=== PATIENT | female | born 2005 | race Hispanic/Latino ===

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

== ENCOUNTER 2024-08-18 14:11 | Emergency (ER) | payer BC ==
[~2024-08-18] VITALS: Ht 154.9 cm; Wt 43.5 kg
[~2024-08-18 14:11] MED LIST: CEPH500B PO
--- NOTE | 2024-08-18 14:32 | EKG ---
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
--- NOTE | 2024-08-18 14:42 | NUR ---
PT JUST NOW BEING PLACED IN MY ED BED 12 BY [facility].
[2024-08-18] MEDS: 0.9%NACL 1000ML 1,000 ML IV ONE (15:00)
--- NOTE | 2024-08-18 16:00 | NUR ---
NO CHANGES IN PT CONDITION. NO ACUTE DISTRESS NOTED. VSS.
[2024-08-18 16:07] LABS: BASOPHILS # (AUTO) 0.01 K/uL (0.00-0.20); BASOPHILS % (AUTO) 0.1 % (0.0-5.0); EOSINOPHILS # (AUTO) 0.01 K/uL (0.00-0.70); EOSINOPHILS % (AUTO) 0.1 % (0.0-8.0); HEMATOCRIT 36.3 % (36-48); IMMATURE GRANULOCYTE ABSOLUTE 0.03 K/uL (0-1); LYMPHOCYTES # (AUTO) 1.6 K/uL (1.0-4.8); MEAN CORPUSCULAR HEMOGLOBIN 31.1 pg (27.0-33.0); MEAN CORPUSCULAR HGB CONC 33.9 g/dL (32.0-36.0); MEAN CORPUSCULAR VOLUME 91.7 fL (80-100); MONOCYTES # (AUTO) 0.7 K/uL (0.1-1.0); NEUTROPHILS # (AUTO) 5.8 K/uL (1.8-7.7); NEUTROPHILS % (AUTO) 71.4 % (40.0-77.0); PLATELET COUNT (AUTO) 393 K/uL (130-400); RED BLOOD CELL COUNT(AUTO) 3.96 MIL/uL (4.00-5.50); RED CELL DISTRIBUTION WIDTH 12.2 % (11.0-15.5); WHITE BLOOD COUNT (AUTO) 8.2 K/uL (4.8-10.8)
[2024-08-18 16:20] LABS: CARBON DIOXIDE 29 mmol/L (21-32); CHLORIDE 108 mmol/L (101-111); CREATININE 0.7 mg/dL (0.5-1.0); GLOMERULAR FILTR. RATE CALC 126 mL/min (>90); GLUCOSE,RANDOM 97 mg/dL (70-105); POTASSIUM 3.6 mmol/L (3.5-5.1); SODIUM SERUM 142 mmol/L (136-145); UREA NITROGEN, BLOOD 10 mg/dL (7-18)
--- NOTE | 2024-08-18 16:35 | HMCIMG ---
CHEST 1VW HISTORY: Arrhythmia COMPARISON: None FINDINGS: A frontal projection of the chest was obtained. No acute pulmonary infiltrates is seen. The heart is normal in size. Prominent interstitial markings are seen. No evidence of aortic calcification is seen. IMPRESSION: 1. No acute pulmonary infiltrate is seen.
[2024-08-18 16:37] LABS: B-TYPE NATRIURETIC PEPTIDE < 5 pg/mL (0-100)
[2024-08-18 16:38] LABS: ALANINE AMINOTRANSFERASE 13 U/L (12-78); ALBUMIN 3.6 g/dL (3.5-5.0); ASPARTATE AMINOTRANSFERASE 17 U/L (10-37); BILIRUBIN,DIRECT < 0.1 mg/dL (0.0-0.3); BILIRUBIN,TOTAL 0.2 mg/dL (0.2-1.0); CREATINE KINASE, TOTAL 92 U/L (21-232); THYROID STIMULATING HORMONE 1.04 uIU/mL (0.36-3.74); TOTAL PROTEIN, SERUM 6.9 g/dL (6.0-8.3)
--- NOTE | 2024-08-18 17:06 | ERN ---
ED Note History of Present Illness Stated Complaint: ELEVATED HEART RATE. SOB. GENERALIZED NUMBNESS. 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 Patient reports shortness a breath, numbness to extremities, but denies any other associated symptoms at this time. Patient states [place] was [place] when she began experiencing shortness a breath and then numbness to all extremities. EMS states patient had a heart rate in the 150s 170s, vasovagal maneuver by EMS. Patient reports that at this time symptoms have resolved and denies any numbness or chest pain. Allergies: Coded Allergies: No Known Drug Allergies (Unverified Allergy, Unknown, 03/26/22) Home Meds Active Scripts Cephalexin Monohydrate (Keflex) 500 Mg Cap, 500 MG PO TID, #30 CAP Prov:SACHA CROUCH MD 03/26/22 Past Medical History Past Medical History: No Pertinent History Additional Past Medical Hx: CONTROL Surgical History: Other Surgical History Other: RECONSTRUCTIVE SURGERY AND STRABISUMUS Social History: Negative Review of System Dictation Constitutional: Negative for fever,chills, and weight loss Eyes: Negative for injury, pain,redness, and discharge ENT: Negative for injury,pain or swelling Cardiovascular: Positive for palpitations Respiratory: Positive for shortness of breath negative for cough, and wheezing, Abdomen/GI: Negative for abdominal pain, nausea, vomiting, diarrhea, and constipation Back: Negative for injury and pain : Negative for injury, bleeding and discharge MS/Extremity: Negative for injury and deformity Skin: Negative for rash, and discoloration Neuro: Positive for extremity numbness Negative for headache, weakness, tingling, and seizure Psych: Negative for suicide ideation, homicidal ideation, and hallucinations Initial Vital Sign VS Vital Signs Date Time Temp Pulse Resp B/P (MAP) Pulse Ox O2 Delivery O2 Flow Rate FiO2 08/18/24 14:13 97.5 106 16 120/83 100 Room Air 0 08/18/24 14:56 21 Physical Exam Dictation General: awake, alert, NAD Head/Face: Normocephalic, atraumatic Eyes: PERRL, EOMI, vision at baseline ENT: oral cavity clear, TMs clear, no signs of infection Neck: Trachea midline, supple, no nuchal rigidity Cardiovascular: Tachycardic No MRGs, no JVD Respiratory: CTAB, no respiratory distress, No rales or wheezes Abdomen: Soft, non-tender, non-distended, normal bowel sounds, no guarding or rebound. Skin: Warm, dry, normal turgor, no rash MS/Extremity: Pulses equal, no cyanosis, neurovascular intact, FROM Neuro: COAx4, GCS 15, strength 5/5, CN 2-12 intact, normal cerebellar exam, normal gait, Psych: Normal behavior, mood, and affect normal Results (Laboratory/Radiology) Laboratory/Radiology Laboratory Tests Test 08/18/24 15:51 08/18/24 17:11 White Blood Count 8.2 K/uL (4.8-10.8) Red Blood Count 3.96 MIL/uL (4.00-5.50) L Hemoglobin 12.3 g/dL (12.0-16.0) Hematocrit 36.3 % (36-48) Mean Corpuscular Volume 91.7 fL (80-100) Mean Corpuscular Hemoglobin 31.1 pg (27.0-33.0) Mean Corpuscular Hemoglobin Concent 33.9 g/dL (32.0-36.0) Red Cell Distribution Width 12.2 % (11.0-15.5) Platelet Count 393 K/uL (130-400) Mean Platelet Volume 9.9 fL (7.5-10.5) Immature Granulocyte % (Auto) 0.4 % (0-1) Neutrophils (%) (Auto) 71.4 % (40.0-77.0) Lymphocytes (%) (Auto) 20.0 % (21.0-51.0) L Monocytes (%) (Auto) 8.0 % (3.0-13.0) Eosinophils (%) (Auto) 0.1 % (0.0-8.0) Basophils (%) (Auto) 0.1 % (0.0-5.0) Neutrophils # (Auto) 5.8 K/uL (1.8-7.7) Lymphocytes # (Auto) 1.6 K/uL (1.0-4.8) Monocytes # (Auto) 0.7 K/uL (0.1-1.0) Eosinophils # (Auto) 0.01 K/uL (0.00-0.70) Basophils # (Auto) 0.01 K/uL (0.00-0.20) Absolute Immature Granulocyte (auto 0.03 K/uL (0-1) Nucleated Red Blood Cells 0.0 % (0.0-0.19) D-Dimer Quantitative (PE/DVT) 149 ng/mL (0-500) Sodium Level 142 mmol/L (136-145) Potassium Level 3.6 mmol/L (3.5-5.1) Chloride Level 108 mmol/L (101-111) Carbon Dioxide Level 29 mmol/L (21-32) Blood Urea Nitrogen 10 mg/dL (7-18) Creatinine 0.7 mg/dL (0.5-1.0) Glomerular Filtration Rate Calc 126 mL/min (>90) Random Glucose 97 mg/dL (70-105) Total Calcium 7.9 mg/dL (8.5-10.1) L Total Bilirubin 0.2 mg/dL (0.2-1.0) Direct Bilirubin < 0.1 mg/dL (0.0-0.3) Aspartate Amino Transf (AST/SGOT) 17 U/L (10-37) Alanine Aminotransferase (ALT/SGPT) 13 U/L (12-78) Alkaline Phosphatase 70 U/L (50-136) Total Creatine Kinase 92 U/L (21-232) Troponin I High Sensitivity 30 ng/L (4-50) B-Type Natriuretic Peptide < 5 pg/mL (0-100) Total Protein 6.9 g/dL (6.0-8.3) Albumin 3.6 g/dL (3.5-5.0) Thyroid Stimulating Hormone (TSH) 1.04 uIU/mL (0.36-3.74) Urine HCG, Qualitative NEGATIVE (NEGATIVE) Urine Opiates Screen NEGATIVE (NEGATIVE) Urine Barbiturates Screen NEGATIVE (NEGATIVE) Urine Phencyclidine Screen NEGATIVE (NEGATIVE) Urine Amphetamines Screen NEGATIVE (NEGATIVE) Urine Benzodiazepines Screen NEGATIVE (NEGATIVE) Urine Cocaine Screen NEGATIVE (NEGATIVE) Urine Marijuana (THC) Screen NEGATIVE (NEGATIVE) Labs Reviewed?: Yes EKG Comment: EKG 08/18/2024 time 2:06 p.m. ventricular rate 100, [place] 139, QRS D 77, QT 341. Sinus tachycardia. No STEMI ED Course ED Course Orders Procedure Category Date Status Time 12 Lead Ekg Tracing- EKG 08/18/24 Resulted Technical 14:16 D-Dimer LAB 08/18/24 Complete 14:20 Thyroid Stimulating LAB 08/18/24 Complete Hormone 14:20 B-Type Natriuretic LAB 08/18/24 Complete Peptide 14:20 Basic Metabolic Panel LAB 08/18/24 Complete 14:20 Cbc With Differential LAB 08/18/24 Complete 14:20 Creatine Kinase, Total LAB 08/18/24 Complete 14:20 Hepatic Function Panel LAB 08/18/24 Complete 14:20 Drug Screen Urine LAB 08/18/24 Complete 14:20 ,Urine Test LAB 08/18/24 Complete 14:20 Troponin I High LAB 08/18/24 Complete Sensitivity 14:20 Chest 1vw RAD 08/18/24 Resulted 14:20 0.9%Nacl 1000ml (Ns PHA 08/18/24 Complete 1000ml) 14:30 Current Medications Medications (Trade) Dose Ordered Sig/Benita Route PRN Reason Start Time Stop Time Status Last Admin Dose Admin Sodium Chloride 1,000 ml @ 0 mls/hr ONCE ONCE IV 08/18/24 14:30 08/18/24 14:31 DC 08/18/24 15:00 Vital Signs Date Time Temp Pulse Resp B/P (MAP) Pulse Ox O2 Delivery O2 Flow Rate FiO2 08/18/24 18:18 97.5 107 16 129/87 98 Room Air* 0 21 08/18/24 14:56 104 17 131/89 98 Room Air* 0 21 08/18/24 14:13 97.5 106 16 120/83 100 Room Air 0 HEART Score Response (Comments) Value History: Low suspicion (0) 0 EKG: Normal 0 Age: < 45yrs (0) 0 Risk Factors: No known risk factors (0) 0 Initial Troponin: Normal limit (0) 0 HEART Score Risk: Low Risk for MACE (1-3) Total 0 Medical Decision Making MDM MDM: Differential diagnosis: Palpitations, chest pain Rationale: Tests considered and ordered secondary to shared decision making include: labs, ECG and radiology Risk of complication and/or morbidity or mortality of patient management: None Medications-Per medication reconciliation Need for hospitalization: Patient does not meet criteria for hospitalization. Need for emergency major/minor surgery: No There are no social concerns with this patient. I independently interpreted the test that were performed, results were reviewed by me and considered findings on radiology if ordered. DX & DISP Disposition: Discharge Departure Impression: Primary Impression: Chest pain Additional Impression: Palpitations Condition: Stable Referrals: RANJIT KENNEDY (PCP) MERLE SMART MD Aug 18, 2024 17:06
[2024-08-18 17:48] LABS: HCG,QUALITATIVE URINE NEGATIVE (NEGATIVE)
[2024-08-18 17:54] LABS: AMPHET/METH SCREEN,URINE NEGATIVE (NEGATIVE); BARBITURATE SCREEN, URINE NEGATIVE (NEGATIVE); BENZODIAZEPINES SCREEN,URINE NEGATIVE (NEGATIVE); CANNABINOID SCREEN,URINE NEGATIVE (NEGATIVE); COCAINE SCREEN,URINE NEGATIVE (NEGATIVE); OPIATE SCREEN,URINE NEGATIVE (NEGATIVE); PHENCYCLIDINE SCREEN,URINE NEGATIVE (NEGATIVE)
[2024-08-18 18:18] VITALS: BP 129/87; PULSE 107; RESP 16; TEMP 97.6; O2SAT 98
== END 2024-08-18 18:25 | disposition home or self-care (01) ==
LOC: EDH 14:11
DX: R07.89 Other chest pain (principal); R00.2 Palpitations
CPT/HCPCS: 99284; 96360; 71045; 84443; 82550; 80076; 84484; 80048; 83880; 80305; 85025; 85378; 81025; 36415; 93005; J7030